=== PATIENT | female | born 1985 | race African-American/Black ===

== ENCOUNTER 2017-09-23 09:50 | Emergency (ER) | payer BC ==
[~2017-09-23] VITALS: Ht 162.6 cm; Wt 68.0 kg
[~2017-09-23 09:50] MED LIST: ANTIVERT25 MG PO; APAP500 PO; B12 VITAMIN OR; CALCIUM OR; CALCIUM PO; COLACE 100 MG100 MG PO; DERMOPLAST SPRA56 ML; ENOXAPARIN40 MG/0.1 SUBQ; HYDROCODONE-AP1 EAC6 PO; HYDROXYZINE PAM25 M1 PO; IBUPROFEN 600600 M1 PO; IBUPROFEN 800800 M1 PO; INDOMETHACIN 5050 M1 PO; IRON OR; IRON325 PO; LANOLIN ANHYDROU1 GM TOP; MAGNESIUM100 MG; MOM PO; MOTRIN100 M1 PO; NAPROSYN500 MG PO; NORCO 10-325 T1 EACH PO; NORCO 5-325 TA1 EACH PO; OMEGA 3-6-9 CO1 EACH PO; OMEGA-3 OR; OMEGA-31000 MG PO; PRENATAL COMPL1 EACH PO; PRENATAL PO; SIMETHICON CHEW80 MG PO; TOPAMAX50 MG; TRINATE TABLET1 TAB PO; ULTRAM 50MG TAB50 MG PO; VISTARIL50 MG PO; VITAMIN B-12100 MC1 PO; VITAMIN B12; ZOLOFT 50 MG TA50 MG PO; ZOLOFT100 MG PO; [UNRECOGNIZED DRUG - OTHER]
[2017-09-23 10:34] LABS: URINE BILIRUBIN NEGATIVE (Negative); URINE BLOOD 2+ (Negative); URINE CLARITY CLEAR; URINE COLOR YELLOW; URINE GLUCOSE-RANDOM* NEGATIVE (Negative); URINE KETONES NEGATIVE (Negative); URINE LEUKOCYTES NEGATIVE (Negative); URINE NITRITE NEGATIVE (Negative); URINE PROTEIN (DIPSTICK) 1+ (Negative); URINE SPECIFIC GRAVITY 1.025 (1.005-1.035); URINE UROBILINOGEN 0.2 E.U./dl (0.2-1.0)
[2017-09-23 10:42] LABS: BACTERIA 1-9 Few /HPF (None Seen); CASTS None Seen /LPF (None Seen); CRYSTALS None Seen /LPF (None Seen); SQUAMOUS 4-10 Moderate /LPF (0-3); URINE RBC 0-2 Rare /HPF (0-2); URINE WBC 0-5 Rare /HPF (0-5)
[2017-09-23 11:00] LABS: ABSOLUTE NEUTROPHILS 7.9 thou/uL (1.4-8.2); BASOPHILS 0.6 % (0.0-2.0); EOSINOPHILS 0.1 % (0.0-3.0); HEMATOCRIT 33.9 % (37.0-47.0); HEMOGLOBIN 10.8 gm/dL (12.0-15.0); LYMPHOCYTES 17.5 % (24.0-44.0); MCHC 31.9 g/dL (28.0-37.0); MCV 78.4 fL (80.0-100.0); MONOCYTES 5.5 % (1.0-8.0); PLATELET COUNT 222 thou/uL (150-400); POLYS 76.3 % (36.0-66.0); RBC 4.33 mil/uL (4.20-5.00); WBC 10.3 thou/uL (4.0-11.0)
[2017-09-23 11:06] LABS: CALCIUM 8.6 mg/dL (8.5-10.1); CREATININE 1.2 mg/dL (0.6-1.0)
[2017-09-23 11:12] LABS: ALBUMIN 3.4 g/dL (3.4-5.0); TOTAL BILIRUBIN 0.5 mg/dL (<0.1-1.0); TOTAL PROTEIN 7.8 g/dL (6.4-8.2)
[2017-09-23] MEDS ORDERED: TORADOL 10 MG T10 MG PO (12:57)
[2017-09-23] MEDS ORDERED: KEFLEX500 M1 PO ×2 (12:57→13:01)
[2017-09-23] MEDS ORDERED: MOBIC7.5 MG PO (13:01)
[2017-09-23 13:11] VITALS: BP 120/86
== END 2017-09-23 13:13 | disposition home or self-care (01) ==
LOC: ER 09:50
PROVIDERS: Physician Assistant
DX: N61.0 Mastitis without abscess (principal); N39.0 Urinary tract infection, site not specified; E87.6 Hypokalemia; F32.9 Major depressive disorder, single episode, unspecified; F41.9 Anxiety disorder, unspecified; G43.909 Migraine, unspecified, not intractable, without status migrainosus; Z86.2 Personal history of diseases of the blood and blood-forming organs and certain disorders involving the immune mechanism; Z88.0 Allergy status to penicillin; Z87.891 Personal history of nicotine dependence; Z91.14 Patient's other noncompliance with medication regimen